=== PATIENT | male | born 1995 | race Caucasian/White ===

== ENCOUNTER 2021-03-19 03:24 | Emergency (ER) | payer SELFPAY ==
--- OUTSIDE RECORDS SUMMARY | 2021-03-19 03:32 | XMS REPORT | Clinical Summary ---
Author Author [facility] Organization [facility] Address Unknown Phone Unavailable Care Team Providers Care Logging Assistant Name Role Phone PCP Unavailable Allergies Comments Active Allergy Reactions Severity Noted Date Amoxicillin Hives Medium 01/15/2008 Cefaclor 09/15/2009 Doxycycline 01/17/2020 Erythromycin Hives Medium 11/28/2019 Penicillin Hives Medium 11/28/2019 Medications End Date Status Medication Sig Dispensed Refills Start Date Active mupirocin (BACTROBAN) 2 % Apply 15 g 0 cream topically 3 0 (three) times a day. Active Problems No known active problems Social History Date Tobacco Use Types Packs/Day Years Used Current Every Day Smoker 0.5 Smokeless Tobacco: Never Used Comments Alcohol Use Standard Drinks/Week Never 0 (1 standard drink = 0.6 o z pure alcohol) Alcohol Habits Answer Date Recorded How often do you have a drink containing alcohol? Never 01/17/2020 How many drinks containing alcohol do you have on No t asked a typical day when you are drinking? How often do you have six or more drinks on one Not asked occasion? 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 Temperature 20 01/17/2020 1:32 AM [employer] REPAIRER Respiratory Rate 97% 01/17/2020 1:32 AM [employer] REPAIRER Oxygen Saturation - - Inhaled Oxygen Concentration 95.3 kg (210 lb) 01/17/2020 12:42 AM [employer] REPAIRER Weight 182.9 cm (6') 01/17/2020 12:42 AM [employer] REPAIRER Height 28.48 01/17/2020 12:42 AM [employer] REPAIRER Body Mass Index Plan of Treatment Not on file Results Not on filefrom Last 3 Months Advance Directives For more information, please contact: [phone] 

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
[2021-03-19 05:47] VITALS: BP 107/73
--- NOTE | 2021-03-19 07:20 | Diagnostic Imaging Report ---
EXAM: HAND, RIGHT, 3 VIEWS INDICATION: Right hand pain. COMPARISON: None. FINDINGS: No fracture or malalignment. Soft tissue shadows are unremarkable. IMPRESSION: Negative right hand radiographs. Dictated by: Dictated on workstation # [id number]
== END 2021-03-19 05:47 | disposition home or self-care (01) ==
LOC: ER 03:29
DX: S60.221A Contusion of right hand, initial encounter (principal); F17.210 Nicotine dependence, cigarettes, uncomplicated; Z88.0 Allergy status to penicillin; Y04.0XXA Assault by unarmed brawl or fight, initial encounter
CPT/HCPCS: 73130